=== PATIENT | female | born 1945 | race Two or more races ===

== ENCOUNTER 2022-02-02 11:04 | Outpatient (CLI) | payer OTHER | END 2022-02-02 11:17 | disposition home or self-care (01) | LOC: SONOGRAMA 11:04 | PROVIDERS: ATTEND Psychiatry & Neurology Clinical Neurophysiology | DX: M75.101 Unspecified rotator cuff tear or rupture of right shoulder, not specified as traumatic (principal) ==

== ENCOUNTER 2022-11-29 09:02 | Outpatient (CLI) | payer OTHER | END 2022-11-29 09:59 | disposition home or self-care (01) | LOC: RAD 09:02 | DX: M17.9 Osteoarthritis of knee, unspecified (principal) ==

== ENCOUNTER 2023-01-24 08:46 | Outpatient (CLI) | payer OTHER | END 2023-01-24 08:51 | disposition home or self-care (01) | LOC: RAD 08:46 | PROVIDERS: ATTEND Orthopaedic Surgery | DX: M79.671 Pain in right foot (principal); M79.672 Pain in left foot ==

== ENCOUNTER 2023-01-27 13:01 | Outpatient (CLI) | payer OTHER | END 2023-01-27 13:08 | disposition home or self-care (01) | LOC: NUCLEAR 13:01 | PROVIDERS: ATTEND Orthopaedic Surgery | DX: M81.0 Age-related osteoporosis without current pathological fracture (principal) ==

== ENCOUNTER 2023-09-30 08:05 | Outpatient (CLI) | payer OTHER | END 2023-09-30 08:12 | disposition home or self-care (01) | LOC: MAMO-SONO 08:05 → SONOGRAMA 08:05 | PROVIDERS: ATTEND Psychiatry & Neurology Clinical Neurophysiology | DX: M75.101 Unspecified rotator cuff tear or rupture of right shoulder, not specified as traumatic (principal); Z12.31 Encounter for screening mammogram for malignant neoplasm of breast ==

== ENCOUNTER 2023-10-03 07:21 | Outpatient (CLI) | payer OTHER | END 2023-10-03 08:04 | disposition home or self-care (01) | LOC: SONOGRAMA 07:21 | PROVIDERS: ATTEND Psychiatry & Neurology Clinical Neurophysiology | DX: M75.101 Unspecified rotator cuff tear or rupture of right shoulder, not specified as traumatic (principal) ==

== ENCOUNTER 2023-12-28 08:48 | Outpatient (CLI) | payer OTHER | END 2023-12-28 08:51 | disposition home or self-care (01) | LOC: RAD 08:48 | PROVIDERS: ATTEND Orthopaedic Surgery | DX: M25.511 Pain in right shoulder (principal) ==

== ENCOUNTER 2023-12-29 06:51 | Outpatient (CLI) | payer OTHER | END 2023-12-29 16:00 | disposition home or self-care (01) | LOC: MRI 06:51 | PROVIDERS: ATTEND Orthopaedic Surgery | DX: M25.511 Pain in right shoulder (principal); M75.41 Impingement syndrome of right shoulder; S40.011A Contusion of right shoulder, initial encounter | CPT/HCPCS: 73223; Q9965; 73222 ==

== ENCOUNTER → 2024-11-20 | Outpatient (CLI) | payer OTHER | END | disposition home or self-care (01) | LOC: RAD 08:24 | PROVIDERS: ATTEND Specialist | DX: M81.8 Other osteoporosis without current pathological fracture (principal); M06.4 Inflammatory polyarthropathy; F39 Unspecified mood [affective] disorder; M75.100 Unspecified rotator cuff tear or rupture of unspecified shoulder, not specified as traumatic; H93.19 Tinnitus, unspecified ear; E03.8 Other specified hypothyroidism; M79.652 Pain in left thigh ==

== ENCOUNTER 2025-03-12 07:04 | Outpatient (CLI) | payer OTHER | END 2025-03-12 07:10 | disposition home or self-care (01) | LOC: SONOGRAMA 07:04 | PROVIDERS: ATTEND Internal Medicine Gastroenterology | DX: R10.84 Generalized abdominal pain (principal) ==

== ENCOUNTER 2025-04-01 07:25 | Outpatient (CLI) | payer OTHER | END 2025-04-01 07:30 | disposition home or self-care (01) | LOC: TOM 07:25 | PROVIDERS: ATTEND Internal Medicine Gastroenterology | DX: K56.600 Partial intestinal obstruction, unspecified as to cause (principal); Z86.0101 Personal history of adenomatous and serrated colon polyps ==

== ENCOUNTER 2025-07-18 08:56 | Outpatient (CLI) | payer OTHER | END 2025-07-18 08:59 | disposition home or self-care (01) | LOC: MAMO-SONO 08:56 | PROVIDERS: ATTEND Obstetrics & Gynecology | DX: N60.11 Diffuse cystic mastopathy of right breast (principal); Z12.31 Encounter for screening mammogram for malignant neoplasm of breast ==

== ENCOUNTER 2025-07-22 07:29 | Outpatient (CLI) | payer OTHER | END 2025-07-22 07:30 | disposition home or self-care (01) | LOC: NUCLEAR 07:29 | PROVIDERS: ATTEND Internal Medicine Cardiovascular Disease | DX: I11.9 Hypertensive heart disease without heart failure (principal) | CPT/HCPCS: 78452; 93017; A9500 ==

== ENCOUNTER → 2025-08-09 | Outpatient (CLI) | payer OTHER | END | disposition home or self-care (01) | LOC: RAD 10:49 | DX: M79.671 Pain in right foot (principal) ==